=== PATIENT | female | born 1965 | race African-American/Black ===

== ENCOUNTER 2022-12-22 05:44 | Emergency (ER) | payer MEDICARE, MEDICAID ==
[~2022-12-22] VITALS: Ht 165.1 cm; Wt 62.0 kg
[2022-12-22 06:59] LABS: BASOPHILS % 0.4 % (0.0-2.0); EOSINOPHILS % 13.8 % (0.0-5.0); HEMATOCRIT. 34.4 % (36.0-48.0); HEMOGLOBIN. 11.3 g/dL (12.0-16.0); LYMPHOCYTES % 14.1 % (20.0-50.0); MEAN CORPUSCULAR HEMOGLOBIN 30.7 pg (28.0-32.0); MEAN CORPUSCULAR VOLUME 93.1 fL (81.0-99.0); MEAN PLATELET VOLUME 7.7 fl (7.4-10.4); MONOCYTES % 12.2 % (2.0-8.0); NEUTROPHILS % 59.5 % (40.0-76.0); PLATELET 328 x1000/uL (130-400); RED CELL DISTRIBUTION WIDTH 17.9 % (11.6-14.6)
[2022-12-22] MEDS ORDERED: CEFTRIAXONE 1GM PREMIX 50 ML IV ONE (07:30)
[2022-12-22 13:06] VITALS: BP 120/60
== END 2022-12-22 13:07 | disposition home or self-care (01) ==
LOC: ER 05:44
DX: S21.002A Unspecified open wound of left breast, initial encounter (principal); I12.9 Hypertensive chronic kidney disease with stage 1 through stage 4 chronic kidney disease, or unspecified chronic kidney disease; D63.1 Anemia in chronic kidney disease; N18.9 Chronic kidney disease, unspecified; X58.XXXA Exposure to other specified factors, initial encounter; Y93.89 Activity, other specified; Y92.89 Other specified places as the place of occurrence of the external cause; Y99.8 Other external cause status
CPT/HCPCS: 36415; 85025; 99283

== ENCOUNTER 2023-05-21 10:08 | Inpatient (IN) | payer MEDICARE, OTHER ==
[~2023-05-21] VITALS: Ht 160 cm; Wt 64.4 kg
[2023-05-21] VITALS (17 sets, daily range): BP systolic 117–231; BP diastolic 63–120; PULSE 67–94; RESP 17–34; TEMP 97.5–98.6
[~2023-05-21 10:08] MED LIST: AMLO10TA80 PO; ASPI-1160 PO; ATEN-42 MT; GABA-532 PO; HYDR-4135 PO; LOSA25TA26 MT; LOSA50TA41 PO
[2023-05-21] MEDS ORDERED: FUROSEMIDE 40MG/4ML VIAL IV ONE (10:30)
[2023-05-21] MEDS ORDERED: NITROGLYCERIN OINT 1GM/INCH UDPKT TD ONE (10:30)
[2023-05-21 11:04] LABS: HEMATOCRIT. 35.8 % (36.0-48.0); HEMOGLOBIN. 11.5 g/dL (12.0-16.0); MEAN CORPUSCULAR HEMOGLOBIN 30.1 pg (28.0-32.0); MEAN CORPUSCULAR HGB CONC 32.1 g/dL (31.0-37.0); MEAN CORPUSCULAR VOLUME 93.7 fL (81.0-99.0); MEAN PLATELET VOLUME 8.1 fl (7.4-10.4); PLATELET 259 x1000/uL (130-400); RED BLOOD CELL COUNT 3.82 mill/uL (4.2-5.4); RED CELL DISTRIBUTION WIDTH 19.6 % (11.6-14.6); WHITE BLOOD COUNT 10.8 x1000/uL (4.5-11.0)
[2023-05-21 11:16] LABS: DIFFERENTIAL COMMENT 1
[2023-05-21] MEDS ORDERED: FUROSEMIDE 40MG/4ML VIAL IVP ONE (11:45)
[2023-05-21 12:23] LABS: CHLORIDE 106 mEq/L (98-107); INDEX HEMOLYSI 1 (1-3); INDEX ICTERIC 1 (1-4); INDEX LIPEMIC 1 (1-3); SODIUM 133 mEq/L (136-145)
[2023-05-21] MEDS ORDERED: ACETAMINOPHEN 325MG TABLET PO PRN (12:30)
[2023-05-21] MEDS ORDERED: DIPHENHYDRAMINE 50MG/ML VIAL IV PRN (12:30)
[2023-05-21] MEDS ORDERED: DOCUSATE SODIUM 100MG CAPSULE PO PRN (12:30)
[2023-05-21] MEDS ORDERED: CLONIDINE 0.1MG TABLET PO PRN (12:30)
[2023-05-21] MEDS ORDERED: GUAIFENESIN 200MG/10ML SUGAR FREE UDC PO PRN (12:30)
[2023-05-21] MEDS ORDERED: ONDANSETRON HCL 4MG/2ML INJ IV PRN (12:30)
[2023-05-21] MEDS ORDERED: IPRATROPIUM/ALBUTEROL 0.5-3(2.5)MG/3ML NEB HHN PRN (12:30)
[2023-05-21] MEDS: AMLODIPINE 5MG TABLET PO SCH ×2 (12:30→16:10)
[2023-05-21 12:32] LABS: CARBON DIOXIDE 18 mEq/L (21-32); POTASSIUM 7.9 mEq/L (3.5-5.1)
[2023-05-21 12:33] LABS: ALANINE AMINOTRANSFERASE 32 IU/L (13-61); ALBUMIN 3.1 g/dL (3.4-5.0); ASPARTATE AMINOTRANSFERASE 16 IU/L (15-37); BILIRUBIN TOTAL 0.5 mg/dL (0.1-1.0); CALCIUM 8.6 mg/dL (8.5-10.1); GLUCOSE 112 mg/dL (70-105); PROTEIN TOTAL 8.4 g/dL (6.0-8.3); TROPONIN I HIGH SENSITIVITY 28 ng/L (<54)
[2023-05-21 12:34] LABS: CREATININE 14.4 mg/dL (0.6-1.3); UREA NITROGEN BLOOD 98 mg/dL (7-21)
[2023-05-21 14:36] LABS: ANISOCYTOSIS 2+; PLATELET ESTIMATE NORMAL
[2023-05-22] VITALS (20 sets, daily range): BP systolic 115–164; BP diastolic 67–91; PULSE 72–88; RESP 17–20; TEMP 97.9–98.7
[2023-05-22] MEDS: HYDROCODONE/ACETAMINOPHEN 5/325MG TABLET PO PRN ×2 (03:40→22:05)
[2023-05-22 06:15] LABS: BASOPHILS % 0.7 % (0.0-2.0); EOSINOPHILS % 1.2 % (0.0-5.0); HEMATOCRIT. 28.2 % (36.0-48.0); HEMOGLOBIN. 9.4 g/dL (12.0-16.0); LYMPHOCYTES % 13.3 % (20.0-50.0); MEAN CORPUSCULAR HEMOGLOBIN 30.5 pg (28.0-32.0); MEAN CORPUSCULAR HGB CONC 33.5 g/dL (31.0-37.0); MEAN PLATELET VOLUME 8.3 fl (7.4-10.4); MONOCYTES % 10.6 % (2.0-8.0); NEUTROPHILS % 74.2 % (40.0-76.0); PLATELET 243 x1000/uL (130-400); RED CELL DISTRIBUTION WIDTH 18.8 % (11.6-14.6); WHITE BLOOD COUNT 8.4 x1000/uL (4.5-11.0)
[2023-05-22 06:31] LABS: CHLORIDE 104 mEq/L (98-107); INDEX HEMOLYSI 1 (1-3); INDEX ICTERIC 1 (1-4); INDEX LIPEMIC 1 (1-3); POTASSIUM 5.9 mEq/L (3.5-5.1); SODIUM 134 mEq/L (136-145)
[2023-05-22 06:40] LABS: ALANINE AMINOTRANSFERASE 19 IU/L (13-61); ALBUMIN 2.4 g/dL (3.4-5.0); ASPARTATE AMINOTRANSFERASE 8 IU/L (15-37); BILIRUBIN TOTAL 0.4 mg/dL (0.1-1.0); CALCIUM 7.4 mg/dL (8.5-10.1); CARBON DIOXIDE 22 mEq/L (21-32); CHOLESTEROL 173 mg/dL (<200); GLUCOSE 126 mg/dL (70-105); HDL CHOLESTEROL 34 mg/dL (40-59); LDL CHOLESTEROL 120 mg/dL (5-100); PROTEIN TOTAL 6.6 g/dL (6.0-8.3); TRIGLYCERIDE 122 mg/dL (0-150); UREA NITROGEN BLOOD 78 mg/dL (7-21)
[2023-05-22 06:55] LABS: CREATININE 13.1 mg/dL (0.6-1.3)
[2023-05-22] MEDS: IPRATROPIUM/ALBUTEROL 0.5-3(2.5)MG/3ML NEB HHN SCH (08:06)
[2023-05-22] MEDS: AMLODIPINE 5MG TABLET PO SCH (09:00)
[2023-05-22] MEDS: GABAPENTIN 300MG CAPSULE PO SCH ×2 (10:06→17:01)
[2023-05-22 15:01] LABS: HEPATITIS B SURFACE ANTIGEN NEGATIVE
[2023-05-22 15:25] LABS: HEPATITIS C VIR.AB 0.16 INDEXVAL (0.00-0.80)
[2023-05-22 15:26] LABS: HEPATITIS B CORE AB IGM NEGATIVE
[2023-05-22 15:31] LABS: HEPATITIS A AB IGM NEGATIVE (NEGATIVE)
[2023-05-22] MEDS: PREDNISONE 20MG TABLET PO SCH (17:01)
[2023-05-23] VITALS (10 sets, daily range): BP systolic 121–157; BP diastolic 69–103; PULSE 56–98; RESP 18–22; TEMP 97.5–98.2; O2SAT 96–99
[2023-05-23] MEDS: IPRATROPIUM/ALBUTEROL 0.5-3(2.5)MG/3ML NEB HHN SCH ×3 (00:39→12:55)
[2023-05-23] MEDS: HYDROCODONE/ACETAMINOPHEN 5/325MG TABLET PO PRN (02:30)
[2023-05-23] MEDS: GABAPENTIN 300MG CAPSULE PO SCH (08:32)
[2023-05-23] MEDS: AMLODIPINE 5MG TABLET PO SCH (08:32)
[2023-05-23] MEDS: PREDNISONE 20MG TABLET PO SCH (08:32)
== END 2023-05-23 13:40 | disposition home or self-care (01) | DRG 291 ==
LOC: ER 10:08 → 5EST 12:03 → EDBEDREQ 12:06 → EDBEDREQTM 12:06 → EDBEDREQSVC 14:53
PROVIDERS: ADMIT Hospitalist; ATTEND Hospitalist
PROC: 5A1D70Z Performance of Urinary Filtration, Intermittent, Less than 6 Hours Per Day (ICD-10-PCS; principal; 2023-05-21)
PROC: 5A09357 Assistance with Respiratory Ventilation, Less than 24 Consecutive Hours, Continuous Positive Airway Pressure (ICD-10-PCS; 2023-05-21)
PROC: 5A1D70Z Performance of Urinary Filtration, Intermittent, Less than 6 Hours Per Day (ICD-10-PCS; 2023-05-22)
DX: I13.2 Hypertensive heart and chronic kidney disease with heart failure and with stage 5 chronic kidney disease, or end stage renal disease (principal); I50.33 Acute on chronic diastolic (congestive) heart failure; J96.01 Acute respiratory failure with hypoxia; N18.6 End stage renal disease; E44.0 Moderate protein-calorie malnutrition; E11.22 Type 2 diabetes mellitus with diabetic chronic kidney disease; J44.9 Chronic obstructive pulmonary disease, unspecified; I16.0 Hypertensive urgency; D63.1 Anemia in chronic kidney disease; Z20.822 Contact with and (suspected) exposure to COVID-19; E87.5 Hyperkalemia; R74.01 Elevation of levels of liver transaminase levels; E11.40 Type 2 diabetes mellitus with diabetic neuropathy, unspecified; G47.33 Obstructive sleep apnea (adult) (pediatric); F17.210 Nicotine dependence, cigarettes, uncomplicated; Z86.73 Personal history of transient ischemic attack (TIA), and cerebral infarction without residual deficits; Z99.2 Dependence on renal dialysis; Z88.8 Allergy status to other drugs, medicaments and biological substances; Z79.899 Other long term (current) drug therapy
CPT/HCPCS: 36415; 71045; 80053; 80061; 84132; 84484; 85025; 86705; 86709; 86803; 87340; 87426; 87804; 90935; 93005; 93970; 94640; 94660; 99285; C9803; J1940; J7512